=== PATIENT | male | born 1950 | race Caucasian/White ===

== ENCOUNTER 2018-08-30 14:04 | Outpatient (CLI) | payer MEDICARE ==
[2018-08-30] MEDS ORDERED: OMNIPAQUE 350 MG/ML, 100ML BOTTLE ONE (16:43)
== END 2018-08-30 23:59 | disposition home or self-care (01) ==
LOC: CFH 14:04
PROVIDERS: ATTEND Family Medicine
DX: K80.20 Calculus of gallbladder without cholecystitis without obstruction (principal); K76.89 Other specified diseases of liver; N20.0 Calculus of kidney
CPT/HCPCS: 74178; Q9967

== ENCOUNTER 2019-07-24 14:39 | Outpatient (CLI) | payer MEDICARE | END 2019-07-24 23:59 | disposition home or self-care (01) | LOC: LAB 14:39 | PROVIDERS: ATTEND Dermatology Dermatopathology | DX: L20.9 Atopic dermatitis, unspecified (principal) | CPT/HCPCS: 36415; 86480 ==

== ENCOUNTER 2020-01-09 22:27 | Emergency (ER) | payer MEDICARE, OTHER ==
[~2020-01-09] VITALS: Ht 185.4 cm; Wt 85.0 kg
--- NOTE | 2020-01-09 22:43 | NUR ---
PT BIB SELF WITH C/O LARGE LAC OT R FOREHEAD. STATES SLIP AND FALL OUT OF HOT TUB TONIGHT. +ETOH. UNK LOC. PT IS A&OX4. NO ACUTE NEURO CHANGES NOTED. 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 BLEEDING CONTROLLED. VSS. CALL LIGHT IN REACH. AWAITING EVAL.
[2020-01-09] MEDS ORDERED: LIDOCAINE-MPF 1%, 5ML ONE (22:47)
[2020-01-09] MEDS ORDERED: LIDOCAINE-MPF 1%, 5ML INFIL ONE (23:00)
[2020-01-09] MEDS ORDERED: DIPH,PERTUSS(ACELL),TET VAC/PF 0.5 ML IM-VACC ONE ×2 (23:00→23:10)
--- NOTE | 2020-01-09 23:30 | NUR ---
Pt returned from CT. tdap given. Attempted wound irrigation, pt unable to tolerate. PA at bedside with lido. Tech to complete irrigation.
[2020-01-09 23:40] VITALS: BP 119/66
[2020-01-10] MEDS ORDERED: NEOSPORIN OINT. PKT 1 PACKET ONE (00:15)
== END 2020-01-10 00:31 | disposition home or self-care (01) ==
LOC: ED 23:55
DX: S01.81XA Laceration without foreign body of other part of head, initial encounter (principal); M47.812 Spondylosis without myelopathy or radiculopathy, cervical region; G89.11 Acute pain due to trauma; I10 Essential (primary) hypertension; W01.0XXA Fall on same level from slipping, tripping and stumbling without subsequent striking against object, initial encounter; Y93.89 Activity, other specified; Y92.098 Other place in other non-institutional residence as the place of occurrence of the external cause; Y99.8 Other external cause status
CPT/HCPCS: 12054; 70450; 72125; 90471; 90715; 99285